=== PATIENT | male | born 1980 | race Caucasian/White ===

== ENCOUNTER 2016-04-19 09:53 | Day surgery (SDC) | payer OTHER ==
[~2016-04-19] VITALS: Ht 170.2 cm; Wt 87.6 kg
[2016-04-19] MEDS ORDERED: NEXIUM (10:41)
[2016-04-19 10:43] VITALS: Ht 170.2 cm; Wt 87.6 kg
[2016-04-19 11:33] VITALS: BP 110/74; PULSE 76; RESP 16
[2016-04-19] MEDS ORDERED: LIDOCAINE 4% SOLUTION 50 ML BTL ONE (11:37)
[2016-04-19 12:24] VITALS: BP 122/80; PULSE 108; RESP 20
[2016-04-19] MEDS ORDERED: FENTAnyl 50 MCG/ML VIAL ONE (12:31)
[2016-04-19] MEDS ORDERED: MIDAZOLAM 1 MG/ML 2 ML INJ ONE ×2 (12:31)
--- NOTE | 2016-04-20 06:17 | GILP ---
DATE OF PROCEDURE: PROCEDURES PERFORMED: 1. Esophagogastroduodenoscopy with biopsy. 2. Colonoscopy with biopsy. INDICATION: The patient is a 36-year-old male who complains of constant right upper quadrant pain f or the last few months. He had been to the emergency room on 2 occasions and all the workup was nega tive. The purpose of this procedure is to evaluate the upper GI tract, lower GI tract and find out the cause of his symptoms. INFORMED CONSENT: The risk of the procedure, related and unrelated complications, anesthetic sedati ve risks, alternatives discussed and informed consent was obtained. DESCRIPTION OF PROCEDURE: Patient was brought to the GI lab, sedated with Versed 4 mg, fentanyl 100 mg, after optimal sedation a surface anesthetic scope was passed with much ease into esophagus. Th e esophagus was grossly normal. Z line was at 39 cm. The patient had a 2 cm hiatal hernia. Stomac h mucosa revealed chacon gastritis and also nodularity randomly distributed. Four to 5 biopsies obtaine d to rule out H. pylori infection and malt Enriqueta duodenum first and second part including ampulla harsha eared normal; however, in the second part there was a diminutive polyp successfully removed by biops y forceps and sent for analysis. Retroversion done, no growth was seen. Scope was straightened out and removed with good patient tolerance. IMPRESSION: 1. Normal esophagus. 2. Z line at 38 to 39 cm. 3. A 2 cm hiatal hernia. 4. Chacon gastritis with nodularity. 5. Normal ampulla. 6. Small diminutive polyp in the second part of duodenum, biopsied and removed. PLAN: Review histopathology. Continue PPI and yogurt which has helped him a lot. COLONOSCOPY REPORT. He was turned around, scope was passed with much ease into rectum after digital exam, digital exam was normal. Scope was advanced all the way into the cecum. He had scattered di verticulosis throughout the colon, entered into terminal ileum which was normal up to 2 feet. The r est of the colon was normal. In the right side of the colon, the lining was covered with a thin laye r of stool which was thick in nature but grossly it was normal. Retroversion done in the rectum whi ch was normal. Scope was straightened out and external hemorrhoids identified. IMPRESSION: 1. Mild diverticulosis throughout the colon, including transverse colon and right colon. 2. Normal terminal ileum up to 2 feet. 3. Rule out melanosis coli. 4. External hemorrhoids. 5. Clarity was good and cleanliness was adequate. PLAN: To review histopathology, stay on Metamucil or Citrucel on a regular basis. Dictated By: KENA MINA/WIN Conf#: [id number] DID#: [id number]
== END 2016-04-19 14:14 | disposition home or self-care (01) ==
LOC: GIL 09:53
PROVIDERS: ATTEND Internal Medicine Gastroenterology
DX: K29.70 Gastritis, unspecified, without bleeding (principal); K44.9 Diaphragmatic hernia without obstruction or gangrene; K63.5 Polyp of colon; K57.30 Diverticulosis of large intestine without perforation or abscess without bleeding; K64.4 Residual hemorrhoidal skin tags; Z90.49 Acquired absence of other specified parts of digestive tract
CPT/HCPCS: 43239; 45380; 88305; J2250; J3010